=== PATIENT | female | born 1950 | race Native Hawaiian/Other Pacific Islander ===

== ENCOUNTER 2016-06-06 21:45 | Observation (INO) | payer OTHER ==
[~2016-06-06] VITALS: Ht 163.8 cm; Wt 64.0 kg
[2016-06-06 21:59] VITALS: BP 170/94; TEMP 98.4
[2016-06-06 22:21] LABS: PLATELET COUNT 258 K/uL (152-353)
[2016-06-06 22:24] LABS: POTASSIUM 3.8 mmol/L (3.6-5.2); SODIUM 134 mmol/L (136-145)
[2016-06-06 22:43] LABS: PARTIAL THROMBOPLASTIN TIME 22.5 SECONDS (24.5-33.6)
[2016-06-06 23:58] VITALS: BP 127/70; TEMP 97.7; Ht 163.8 cm; Wt 64.0 kg
[2016-06-07] VITALS: BP 127/70; TEMP 97.7
[2016-06-07 04:00] VITALS: BP 143/83; BP 92/52; TEMP 97.7; TEMP 97.8
[2016-06-07 08:00] VITALS: BP 115/66; TEMP 98
[2016-06-07 12:00] VITALS: BP 135/74; TEMP 98
--- NOTE | 2016-06-07 16:15 | NUR ---
IV D/C'd. NO REDNESS OR EDEMA OBSERVED. DISCHARGE INSTRUCTIONS SIGNED AND GIVEN. Pt. EXIT OUT OF FRONT ENTRANCE AMBULATING.
== END 2016-06-07 16:15 | disposition home or self-care (01) ==
LOC: ED 21:45 → MED/SURG 23:00
PROVIDERS: Internal Medicine; ADMIT Emergency Medicine
DX: R07.89 Other chest pain (principal); R20.0 Anesthesia of skin; R68.84 Jaw pain; Z79.899 Other long term (current) drug therapy
CPT/HCPCS: 36415; 80053; 80061; 82550; 83036; 83880; 84484; 85027; 85610; 85730; 93005; 94760; 96374; 96375; 99220; 99284; G0378; J1650; J2405

== ENCOUNTER 2016-06-25 17:13 | Outpatient (CLI) | payer OTHER | END 2016-06-25 17:14 | disposition home or self-care (01) | LOC: AMB 17:13 | DX: R07.89 Other chest pain (principal); R06.02 Shortness of breath; M79.602 Pain in left arm | CPT/HCPCS: A0425; A0427 ==

== ENCOUNTER 2016-06-25 17:23 | Emergency (ER) | payer OTHER ==
[~2016-06-25] VITALS: Ht 162.6 cm; Wt 63.5 kg
[2016-06-25 18:26] LABS: POTASSIUM 3.6 mmol/L (3.6-5.2); SODIUM 136 mmol/L (136-145)
[2016-06-25 18:27] LABS: PLATELET COUNT 297 K/uL (152-353)
[2016-06-25 19:27] VITALS: BP 135/76; TEMP 97.8
== END 2016-06-25 19:28 | disposition short-term general hospital (02) ==
LOC: ED 17:23
DX: R07.89 Other chest pain (principal); R94.31 Abnormal electrocardiogram [ECG] [EKG]; I20.0 Unstable angina
CPT/HCPCS: 80053; 82550; 84484; 85027; 85610; 85730; 93005; 96372; 96374; 99284; J1650; J2270

== ENCOUNTER 2016-06-25 19:47 | Outpatient (CLI) | payer OTHER | END 2016-06-25 20:20 | disposition short-term general hospital (02) | LOC: AMB 19:47 | DX: R07.89 Other chest pain (principal); R94.31 Abnormal electrocardiogram [ECG] [EKG]; I20.0 Unstable angina | CPT/HCPCS: A0425; A0427 ==

== ENCOUNTER 2016-07-15 10:57 | Outpatient (CLI) | payer OTHER ==
[2016-07-15 11:26] LABS: PLATELET COUNT 554 K/uL (152-353)
== END 2016-07-15 20:01 | disposition home or self-care (01) ==
LOC: LAB 10:57
PROVIDERS: Thoracic Surgery (Cardiothoracic Vascular Surgery)
DX: I25.10 Atherosclerotic heart disease of native coronary artery without angina pectoris (principal)
CPT/HCPCS: 85027

== ENCOUNTER 2017-07-31 12:58 | Outpatient (CLI) | payer OTHER | END 2017-07-31 20:08 | disposition home or self-care (01) | LOC: LABW 12:58 | PROVIDERS: Nurse Practitioner Adult Health | DX: Z79.899 Other long term (current) drug therapy (principal); Z51.81 Encounter for therapeutic drug level monitoring; E78.4 Other hyperlipidemia | CPT/HCPCS: 36415; 80061; 80076 ==

== ENCOUNTER 2017-08-31 10:06 | Outpatient (CLI) | payer OTHER | END 2017-08-31 19:15 | disposition home or self-care (01) | LOC: MAMMO 10:06 | DX: Z12.31 Encounter for screening mammogram for malignant neoplasm of breast (principal) ==

== ENCOUNTER 2017-09-21 14:49 | Outpatient (CLI) | payer OTHER | END 2017-09-21 22:07 | disposition home or self-care (01) | LOC: LABW 14:49 | DX: K59.1 Functional diarrhea (principal) | CPT/HCPCS: 82705; 87015; 87045; 87205; 87324; 87328; 87329; 87449; 87899 ==

== ENCOUNTER 2017-11-06 13:26 | Outpatient (CLI) | payer OTHER | END 2017-11-06 22:06 | disposition home or self-care (01) | LOC: LAB 13:26 | DX: N30.01 Acute cystitis with hematuria (principal) | CPT/HCPCS: 87077; 87086; 87088; 87186 ==

== ENCOUNTER 2018-01-16 09:20 | Outpatient (CLI) | payer OTHER | END 2018-01-16 19:59 | disposition home or self-care (01) | LOC: LABW 09:20 | PROVIDERS: Nurse Practitioner Adult Health | DX: E78.2 Mixed hyperlipidemia (principal); Z79.899 Other long term (current) drug therapy | CPT/HCPCS: 36415; 80061; 80076 ==

== ENCOUNTER 2018-10-25 15:36 | Outpatient (CLI) | payer OTHER ==
[2018-10-25 16:24] LABS: PLATELET COUNT 272 K/uL (152-353)
[2018-10-25 16:55] LABS: POTASSIUM 4.7 mmol/L (3.6-5.2)
== END 2018-10-25 20:49 | disposition home or self-care (01) ==
LOC: LAB 15:36
PROVIDERS: Physician Assistant
DX: D50.8 Other iron deficiency anemias (principal); F41.8 Other specified anxiety disorders; K22.70 Barrett's esophagus without dysplasia; E55.9 Vitamin D deficiency, unspecified
CPT/HCPCS: 80053; 84439; 84443; 85027